=== PATIENT | female | born 1985 | race Two or more races ===

== ENCOUNTER → 2024-09-27 | Outpatient (CLI) | payer BC, MEDICAID, SELFPAY ==
--- NOTE | 2024-09-27 09:00 | XR_ITS ---
Examination: Breast ultrasound, unilateral, right complete Date and time of exam: September 27, 2024 0953 hours INDICATIONS: Mammogram 07/19/2024 16 mm 3:00 nodule right breast Technique: Real-time osborne scale ultrasonographic imaging performed right breast including all 4 quadrants as well as nipple retroareolar and axillary region. Findings: 3:00 oval mass partially indistinct margins 21 x 15 x 17 mm 9:00 intramammary lymph node 10 x 5 x 6 mm 10:00 cyst 9 x 5 x 8 mm Impression: BI-RADS Category 4: Suspicious for malignancy Suspicious mass 3:00 position right breast, biopsy is needed to exclude breast carcinoma This mass is amenable to ultrasound-guided breast biopsy for diagnosis
--- NOTE | 2024-09-27 09:30 | XR_ITS ---
Examination: Diagnostic digital mammography, unilateral, right Computer aided detection 3-D breast Tomosynthesis, unilateral Date and time of exam: September 27, 2024 0924 hours INDICATIONS: Mammogram 07/20/2024 16 mm inner right breast mass. Technique: Nonmagnified MLO, CC views of the right breast have been obtained, reconstructed from 3-D Tomosynthesis images. R2 computer aided detection program utilized for evaluation of suspicious masses and/or abnormal calcifications. 3-D Tomosynthesis images obtained. Findings: The breast is heterogeneously dense, which may obscure small masses 3:00 round mass 20 mm partially indistinct margins Impression: BI-RADS category 4: Suspicious for malignancy Suspicious mass 3:00 position right breast, biopsy is needed to say breast carcinoma This mass is amenable to ultrasound-guided breast biopsy for diagnosis
== END | disposition home or self-care (01) ==
PROVIDERS: Referring Provider Obstetrics & Gynecology; Visit Provider Obstetrics & Gynecology
DX: R92.341 Mammographic extreme density, right breast (principal); N63.15 Unspecified lump in the right breast, overlapping quadrants; N60.01 Solitary cyst of right breast
CPT/HCPCS: 76641; 77061; 77065; G0279